=== PATIENT | female | born 1950 | race Caucasian/White ===

== ENCOUNTER 2025-05-04 08:46 | Day surgery (SDC) | payer MEDICARE, OTHER, SELFPAY ==
[2025-05-04] VITALS (7 sets, daily range): BP systolic 123–150; BP diastolic 62–77; BMI 31.0
[2025-05-04] MEDS: LOW STRENGTH ASPIRIN 324 MG PO (09:32)
[2025-05-04] MEDS: NSS 216 ML IV (09:33)
--- NOTE | 2025-05-04 11:21 | ITS.CL.CATH ---
Dyno Technician - Catheterization
Cardiac Catheterization
Procedure Report:
LEFT HEART CATHETERIZATION
Date of Procedure: May 04, 2025
Procedures performed:
1: Coronary angiography
2: Left ventricular hemodynamic assessment
Primary Care Physician: Dr. Jana Briseno
Primary Radiology Ct Technologist: Dr. Bandar Soto
INDICATION: The patient is a 74-year-old woman who presents with exertional dyspnea and chest discomfort that started in November. Noninvasive workup including echo, stress test, and CTA were unremarkable. In light of her ongoing symptoms she is
referred for cardiac catheterization. Of note, she also has Raynaud's in her hands.
ACCESS: The patient was prepped and draped in usual sterile fashion. A 6 Irish sheath was placed in the right radial artery using the Seldinger over the wire technique.
HEMODYNAMIC FINDINGS (mmHg):
LV(s/d,EDP): 110/13, 24
Ao(s/d,m): 110/60, 79
ANGIOGRAPHIC FINDINGS:
Single-plane Left Ventriculography in YIP Projection: Not done. Normal LV function by noninvasive studies.
Left
Coronary Angiography:
Dominance:
Left Main: Normal, medium to large caliber.
Left Anterior Descending: The left anterior descending artery is a medium caliber vessel that has moderate mid calcification but no focal obstructive disease with normal flow distally.
Ramus Intermedius: Medium caliber vessel that is angiographically normal.
Left Circumflex: The left circumflex is a large-caliber dominant vessel. There are 2 widely patent medium caliber obtuse marginal branches. The vessel terminates in a small left-sided posterior left ventricular branch and medium caliber posterior
descending artery. All vessels have normal distal flow without focal disease.
Right Coronary: Medium caliber nondominant vessel that is widely patent.
Fluoroscopy Time (min): 2.1
Radiation Dose (mGy): 128
DAP (Gy.cm2): 8.2
Closure device: None. A TR band was applied for hemostasis at the right wrist.
Complications: None.
ASSESSMENT:
1: Near normal coronary arteries.
2: Elevated left regular filling pressures.
CONCLUSIONS and RECOMMENDATIONS:
1: Will switch from Toprol to amlodipine 2.5 mg daily for possible efficacy and symptom relief in case there is small vessel disease. This may also help her Raynaud's symptoms in her hands.
2: Consider low-dose diuretic for elevated filling pressures if symptoms persist with med changes.
3: Clinical follow-up as scheduled.
Carlee Fox M.D.
== END 2025-05-04 14:03 | disposition home or self-care (01) ==
LOC: CATH 08:46
PROVIDERS: ATTENDING PHYSICIAN Internal Medicine Interventional Cardiology; FAMILY PHYSICIAN Family Medicine; OTHER PHYSICIAN Internal Medicine Cardiovascular Disease
DX: R07.89 Other chest pain (principal); Z79.899 Other long term (current) drug therapy; R06.09 Other forms of dyspnea; I73.00 Raynaud's syndrome without gangrene
CPT/HCPCS: 93458; C1769; C1894; Q9967

== ENCOUNTER → 2025-07-23 07:04 | Outpatient (REF) | payer MEDICARE, OTHER, SELFPAY | LOC: DHSLP 07:04 | PROVIDERS: ATTENDING PHYSICIAN Internal Medicine | DX: G47.33 Obstructive sleep apnea (adult) (pediatric) (principal) | CPT/HCPCS: 95800 ==